=== PATIENT | female | born 1985 | race Caucasian/White ===

== ENCOUNTER → 2023-06-20 06:48 | Outpatient (REF) | payer BC, SELFPAY | LOC: HWWDC 06:48 | PROVIDERS: ATTENDING PHYSICIAN Nurse Practitioner Family | DX: Z12.31 Encounter for screening mammogram for malignant neoplasm of breast (principal) | CPT/HCPCS: 77063; 77067 ==

== ENCOUNTER → 2023-06-27 06:32 | Outpatient (REF) | payer BC, SELFPAY | LOC: MRI 3T 06:32 | PROVIDERS: ATTENDING PHYSICIAN Orthopaedic Surgery | DX: M54.16 Radiculopathy, lumbar region (principal) | CPT/HCPCS: 72148 ==

== ENCOUNTER → 2024-02-17 15:21 | Outpatient (REF) | payer BC, SELFPAY | LOC: HWRAD 15:21 | PROVIDERS: ATTENDING PHYSICIAN Physician Assistant Medical | DX: R10.9 Unspecified abdominal pain (principal); R31.9 Hematuria, unspecified | CPT/HCPCS: 74176 ==

== ENCOUNTER → 2024-03-31 11:37 | Outpatient (REF) | payer BC, SELFPAY | LOC: HWRAD 11:37 | PROVIDERS: ATTENDING PHYSICIAN Family Medicine | DX: U07.1 COVID-19 (principal); R06.02 Shortness of breath; R05.8 Other specified cough | CPT/HCPCS: 71046 ==

== ENCOUNTER → 2024-05-10 07:24 | Outpatient (REF) | payer BC, SELFPAY | LOC: HWRAD 07:24 | PROVIDERS: ATTENDING PHYSICIAN Physician Assistant Medical | DX: R16.0 Hepatomegaly, not elsewhere classified (principal) | CPT/HCPCS: 76700 ==

== ENCOUNTER 2024-06-28 06:46 | Day surgery (SDC) | payer BC, SELFPAY ==
[2024-06-28] VITALS (9 sets, daily range): BP systolic 126–137; BP diastolic 76–89; BMI 29.0
[2024-06-28] MEDS: TYLENOL 1000 MG PO (10:48)
[2024-06-28] MEDS: NORMOSOL-R/PLASMALYTE-A 1000 IV (10:48)
[2024-06-28] MEDS: IC GREEN 2.5 MG IV (10:49)
[2024-06-28] MEDS: HEPARIN 5000 UNITS SC (11:02)
--- NOTE | 2024-06-28 12:44 | OR.RPT ---
Addendum entered and electronically signed by Aditya Spencer MD 06/30/24 14:06:
Correction: DOS 06/28/24
Original Note:
Operative Report
Operative Report
Primary Surgeon: Tj
Assisting: Andrea ALCANTARA
Pre-op Diagnosis: Biliary colic
Post-op Diagnosis: Same
Procedure Performed: Robot assisted laparoscopic cholecystectomy
Anesthesia Type: GETA
Specimen / Cultures: Gallbladder
Estimated Blood Loss: 5cc
Complications: None immediate
Operative Findings: Gallbladder with mildly thickened wall and mild posterior wall fibrosis, removed intact
Date of Surgery:� 06/25/24
Indications: This 39F developed symptomatic cholelithiasis. Lab work showed normal liver enzymes. Imaging showed no ductal dilation. Laparoscopic cholecystectomy with robotic assist was elected.
Description of procedure: The patient was placed on the operating table in the supine position. General anesthesia was induced. A time-out was completed verifying correct patient, procedure, site, positioning, and special equipment prior to
beginning this procedure. An orogastric tube was placed. The abdomen was prepped and draped in the usual sterile fashion. A stab incision was made in left upper quadrant and the Veress needle was inserted. Proper position was confirmed by aspiration
and saline meniscus test. The abdomen was insufflated with carbon dioxide to a pressure of 12mmHg. The patient tolerated insufflation well.
A 8mm trocar was then inserted above the umbilicus through the existing hernia defect. The laparoscope was inserted and the abdomen inspected. No injuries from initial trocar placement or Veress needle insertion were noted. Additional 8mm trocars
were then inserted in the following locations: two in the right lower quadrant and to the left of the umbilicus and just above. The abdomen was inspected and no abnormalities were found. Filmy omental adhesions to the gallbladder were taken down
with electrocautery. The table was placed in the reverse Trendelenburg position with the right side up. The dome of the gallbladder was grasped with an atraumatic grasper and retracted over the dome of the liver. The infundibulum was then grasped
with an atraumatic grasper and retracted toward the right lower quadrant. This maneuver exposed Calot�s triangle. The gallbladder was notably elongated. The peritoneum overlying the gallbladder infundibulum was then incised and the cystic duct and
cystic artery identified and circumferentially dissected so that a clear view of the liver was achieved through a window between the cystic duct an cystic artery. At this time, the only two structures going into the gallbladder were the cystic
artery and cystic duct. The common duct was identified with ICG and protected.
The cystic duct was then doubly clipped and divided. The cystic artery was controlled with bipolar and divided. The gallbladder was then dissected from its peritoneal attachments by electrocautery. The gallbladder was removed using an endoscopic
retrieval bag placed through the umbilical port. The gallbladder was passed off the table as a specimen. The gallbladder fossa was closely inspected. There was no evidence of bleeding from the gallbladder fossa or cystic artery or leakage of the
bile from the cystic duct stump. The umbilical trocar site was closed at the fascial level with 2-0 PDS. Secondary trocars were removed under direct vision and noted to be hemostatic. The abdomen was allowed to collapse. The skin was closed with
subcuticular sutures of 4-0 monocryl and topical skin adhesive. The orogastric tube was removed.
The patient tolerated the procedure well and was taken to the postanesthesia care unit in stable condition.
[2024-06-28] MEDS: SUBLIMAZE 25 MCG IV ×2 (13:17→13:31)
[2024-06-28] MEDS: SUBLIMAZE 50 MCG IV (13:46)
--- NOTE | 2024-06-28 13:49 | SUR.PHASEI ---
patient resting quietly, eyes closed, smiling - c/o abdominal pain 7 - 12/22 - medicated x2 with 25mcg of fentanyl due to somnolent state - states little relief of pain, though continues to rest quietly, vss. medicated with Fentanyl 50mcg -
cautiously.
== END 2024-06-28 15:18 | disposition home or self-care (01) ==
LOC: SDS 06:46
PROVIDERS: ATTENDING PHYSICIAN Surgery
DX: K80.10 Calculus of gallbladder with chronic cholecystitis without obstruction (principal)
CPT/HCPCS: 47562; 88304

== ENCOUNTER 2024-09-27 06:19 | Day surgery (SDC) | payer BC, SELFPAY | END 2024-09-27 11:43 | disposition home or self-care (01) | LOC: GI 06:19 | PROVIDERS: ATTENDING PHYSICIAN Internal Medicine | DX: R10.13 Epigastric pain (principal); K29.50 Unspecified chronic gastritis without bleeding | CPT/HCPCS: 43239; 88305; 88342 ==

== ENCOUNTER → 2024-11-30 19:13 | Outpatient (REF) | payer BC, SELFPAY | LOC: WDC 19:13 | PROVIDERS: ATTENDING PHYSICIAN Physician Assistant Medical | DX: Z12.31 Encounter for screening mammogram for malignant neoplasm of breast (principal) | CPT/HCPCS: 77063; 77067 ==